=== PATIENT | female | born 2000 | race American Indian/Alaskan Native ===

== ENCOUNTER 2022-04-24 12:58 | Outpatient (CLI) | payer MEDICAID | END 2022-04-24 23:59 | disposition home or self-care (01) | LOC: RAD 12:58 | PROVIDERS: ATTEND Family Medicine | DX: O9A.211 Injury, poisoning and certain other consequences of external causes complicating pregnancy, first trimester (principal); Z3A.00 Weeks of gestation of pregnancy not specified | CPT/HCPCS: 76801; 76830; 93976 ==